=== PATIENT | male | born 1980 | race Caucasian/White ===

== ENCOUNTER 2017-11-27 07:45 | Inpatient (IN) | payer OTHER ==
[~2017-11-27] VITALS: Ht 182.9 cm; Wt 69.2 kg
[~2017-11-27 07:45] MED LIST: PERCOCET 5/31 TABLET PO
[2017-11-27 09:09] LABS: APPEARANCE SL.HAZY ((CLEAR)); BILIRUBIN NEGATIVE; BLOOD NEGATIVE; COLOR YELLOW ((YELLOW)); GLUCOSE (STRIP) NEGATIVE; KETONES NEGATIVE; LEUKOCYTES NEGATIVE; NITRITE NEGATIVE; PROTEIN (STRIP) NEGATIVE; UROBILINOGEN 0.2 MG/DL (0.2-1.0)
[2017-11-27 09:11] LABS: BACTERIA NONE SEEN /HPF; EPITHELIAL CELLS NONE SEEN /HPF; MUCUS TRACE /LPF; RED BLOOD CELLS 0-5 /HPF (0-5); WHITE BLOOD CELLS 0-5 /HPF (0-5)
[2017-11-27 09:24] LABS: BASOPHIL (%) 0.6 % (0-1); BASOPHIL COUNT 0.1 K/uL (0-0.1); EOSINOPHIL (%) 7.6 % (0-5); HEMATOCRIT 36.5 % (38.0-50.0); HEMOGLOBIN 12.5 G/DL (12.5-16.6); IMMATURE GRANULOCYTE (%) 0.4 % (0.0-0.7); LYMPHOCYTE (%) 12.5 % (15-42); LYMPHOCYTE COUNT 1.6 K/uL (1.0-2.8); MCH 31.6 PG (29.0-34.0); MCHC 34.2 G/DL (30.0-36.0); MCV 92.4 FL (86-99); MONOCYTE (%) 7.4 % (3-12); NEUTROPHIL (%) 71.5 % (45-76); NEUTROPHIL COUNT 9.1 K/uL (1.8-6.4); PLATELET COUNT 304 K/uL (156-360); RBC DIS.WIDTH-CV 11.4 % (11.8-14.6); RBC DIS.WIDTH-SD 39.1 % (39-53); RED BLOOD COUNT 3.95 M/uL (4.00-5.50); WHITE BLOOD COUNT 12.8 K/uL (4.1-10.2)
[2017-11-27 09:32] LABS: CHLORIDE 107 mEq/L (99-109); POTASSIUM 4.9 mEq/L (3.7-5.4); SODIUM 140 mEq/L (136-147)
[2017-11-27 09:34] LABS: GLUCOSE 92 mg/dL (70-99)
[2017-11-27 09:34] LABS: AMPHETAMINE NEGATIVE (500 ng/mL); BARBITURATES NEGATIVE (200 ng/mL); BENZODIAZEPINES PRESUMPTIVE POSITIVE (150 ng/mL); COCAINE NEGATIVE (150 ng/mL); METHADONE NEGATIVE (200 ng/mL); METHAMPHETAMINE NEGATIVE (500 ng/mL); OPIATES (MORPHINE) PRESUMPTIVE POSITIVE (100 ng/mL); OXYCODONE PRESUMPTIVE POSITIVE (100 ng/mL); PHENCYCLIDINE NEGATIVE (25 ng/mL); PROPOXYPHENE NEGATIVE (300 ng/mL); THC CANNABINOIDS NEGATIVE (50 ng/mL); TRICYCLIC ANTIDEPRESSANTS NEGATIVE (300 ng/mL)
[2017-11-27 09:35] LABS: BUPRENORPHINE NEGATIVE (10 ng/mL)
[2017-11-27 09:37] LABS: CREATININE 0.8 mg/dL (0.6-1.3); GFR ESTIMATE (CALCULATED) > 59 mL/min/ (58.99-99999); SERUM ETHYL ALCOHOL < 10 mg/dL
[2017-11-27 09:38] LABS: UREA NITROGEN (BUN) 13 mg/dL (9-23)
[2017-11-27 10:24] LABS: BENZODIAZEPINES, URINE SCREEN POSITIVE (200 ng/mL)
[2017-11-27 11:15] VITALS: BP 128/82
[2017-11-27] MEDS ORDERED: OXYCODONE HCL30 MG PO (11:17)
[2017-11-27 11:18] VITALS: BP 128/82
[2017-11-27 15:44] VITALS: BP 109/68
[2017-11-27 21:32] VITALS: BP 100/55
[2017-11-28 07:59] VITALS: BP 122/75
[2017-11-28 13:40] VITALS: BP 139/82
[2017-11-28 15:41] VITALS: BP 115/73
[2017-11-29 07:51] VITALS: BP 114/64
[2017-11-29] MEDS ORDERED: DULOXETINE HCL30 MG PO (09:23)
== END 2017-11-29 11:25 | disposition home or self-care (01) | DRG 881 ==
LOC: EME 07:45 → 1WEST 09:25 → EDOF 09:25 → ENRESERV 10:59 → 1WEST 11:11
PROVIDERS: Emergency Medicine
DX: F32.9 Major depressive disorder, single episode, unspecified (principal); F11.23 Opioid dependence with withdrawal; R45.851 Suicidal ideations; F19.24 Other psychoactive substance dependence with psychoactive substance-induced mood disorder; Z87.442 Personal history of urinary calculi
CPT/HCPCS: 80048; 81003; 84999; 85025; 90839; 97165 GO; 99281; 99285; G0480; J0572; Q0177

== ENCOUNTER 2017-12-05 07:52 | Emergency (ER) | payer OTHER ==
[~2017-12-05] VITALS: Ht 182.9 cm; Wt 68.9 kg
[~2017-12-05 07:52] MED LIST changes: +DULOXETINE HCL30 MG PO; +OXYCODONE HCL30 MG PO
[2017-12-05 08:38] LABS: BASOPHIL (%) 0.9 % (0-1); BASOPHIL COUNT 0.1 K/uL (0-0.1); EOSINOPHIL (%) 8.9 % (0-5); EOSINOPHIL COUNT 0.9 K/uL (0-0.3); HEMATOCRIT 39.5 % (38.0-50.0); HEMOGLOBIN 13.4 G/DL (12.5-16.6); IMMATURE GRANULOCYTE (%) 0.3 % (0.0-0.7); LYMPHOCYTE (%) 15.9 % (15-42); LYMPHOCYTE COUNT 1.7 K/uL (1.0-2.8); MCH 31.3 PG (29.0-34.0); MCHC 33.9 G/DL (30.0-36.0); MCV 92.3 FL (86-99); MONOCYTE COUNT 0.7 K/uL (0-0.8); PLATELET COUNT 356 K/uL (156-360); RBC DIS.WIDTH-CV 11.4 % (11.8-14.6); RBC DIS.WIDTH-SD 38.9 % (39-53); RED BLOOD COUNT 4.28 M/uL (4.00-5.50); WHITE BLOOD COUNT 10.5 K/uL (4.1-10.2)
[2017-12-05 08:49] LABS: CHLORIDE 104 mEq/L (99-109); POTASSIUM 3.7 mEq/L (3.7-5.4); SODIUM 141 mEq/L (136-147)
[2017-12-05 08:51] LABS: GLUCOSE 94 mg/dL (70-99)
[2017-12-05 08:54] LABS: SERUM ETHYL ALCOHOL < 10 mg/dL
[2017-12-05 08:55] LABS: CREATININE 0.8 mg/dL (0.6-1.3); GFR ESTIMATE (CALCULATED) > 59 mL/min/ (58.99-99999)
[2017-12-05 08:56] LABS: UREA NITROGEN (BUN) 15 mg/dL (9-23)
[2017-12-05 09:02] LABS: APPEARANCE CLEAR ((CLEAR)); BILIRUBIN NEGATIVE; BLOOD NEGATIVE; COLOR YELLOW ((YELLOW)); GLUCOSE (STRIP) NEGATIVE; KETONES NEGATIVE; LEUKOCYTES NEGATIVE; NITRITE NEGATIVE; PROTEIN (STRIP) NEGATIVE; SPECIFIC GRAVITY 1.017 (1.000-1.030); UROBILINOGEN 0.2 MG/DL (0.2-1.0)
[2017-12-05 09:11] LABS: AMPHETAMINE NEGATIVE (500 ng/mL); BARBITURATES NEGATIVE (200 ng/mL); BENZODIAZEPINES NEGATIVE (150 ng/mL); BUPRENORPHINE NEGATIVE (10 ng/mL); COCAINE NEGATIVE (150 ng/mL); METHADONE NEGATIVE (200 ng/mL); METHAMPHETAMINE NEGATIVE (500 ng/mL); OPIATES (MORPHINE) PRESUMPTIVE POSITIVE (100 ng/mL); OXYCODONE NEGATIVE (100 ng/mL); PHENCYCLIDINE NEGATIVE (25 ng/mL); PROPOXYPHENE NEGATIVE (300 ng/mL); THC CANNABINOIDS NEGATIVE (50 ng/mL); TRICYCLIC ANTIDEPRESSANTS NEGATIVE (300 ng/mL)
[2017-12-05 11:27] VITALS: BP 153/92
== END 2017-12-05 11:27 | disposition home or self-care (01) ==
LOC: EME 07:52
PROVIDERS: Emergency Medicine
DX: F11.10 Opioid abuse, uncomplicated (principal); F32.9 Major depressive disorder, single episode, unspecified; F41.9 Anxiety disorder, unspecified
CPT/HCPCS: 80048; 81003; 84999; 85025; 99281; 99283; G0480

== ENCOUNTER 2018-01-20 21:00 | Emergency (ER) | payer OTHER ==
[~2018-01-20] VITALS: Ht 182.9 cm; Wt 68.4 kg
[2018-01-21] MEDS ORDERED: NARCAN4 MG NS (00:28)
[2018-01-21 00:58] VITALS: BP 117/87
== END 2018-01-21 00:59 | disposition home or self-care (01) ==
LOC: EME 21:00
DX: T40.1X1A Poisoning by heroin, accidental (unintentional), initial encounter (principal); T40.5X1A Poisoning by cocaine, accidental (unintentional), initial encounter; G89.29 Other chronic pain; F32.9 Major depressive disorder, single episode, unspecified; F41.9 Anxiety disorder, unspecified
CPT/HCPCS: 99281; 99284